=== PATIENT | female | born 1975 | race Caucasian/White ===

== ENCOUNTER → 2023-04-14 | Outpatient (CLI) | payer OTHER, MEDICAID ==
[2023-04-14 15:12] LABS: HEMATOCRIT 42.2 % (37.0-47.0); HEMOGLOBIN 13.7 g/dL (12.5-16.0); MEAN PLATELET VOLUME 8.9 fl (7.4-10.4); RED BLOOD COUNT 4.55 M/mm3 (4.10-5.30); RED CELL DISTRIBUTION WIDTH 12.2 % (11.5-14.5); WHITE BLOOD COUNT 5.6 K/mm3 (4.8-10.8)
[2023-04-14 15:18] LABS: ALBUMIN 4.2 g/dL (3.5-5.0)
[2023-04-14 15:20] LABS: CALCIUM 9.3 mg/dL (8.3-10.5)
[2023-04-14 15:21] LABS: TOTAL PROTEIN 6.8 g/dL (6.4-8.3)
[2023-04-14 15:23] LABS: TOTAL BILIRUBIN 0.4 mg/dL (0.2-1.2)
== END ==
LOC: LAB 14:51
PROVIDERS: Family Medicine
DX: M47.812 Spondylosis without myelopathy or radiculopathy, cervical region (principal); D50.0 Iron deficiency anemia secondary to blood loss (chronic); R03.0 Elevated blood-pressure reading, without diagnosis of hypertension; M40.50 Lordosis, unspecified, site unspecified

== ENCOUNTER → 2024-03-19 | Outpatient (CLI) | payer OTHER ==
[2024-03-19 14:40] LABS: CALCIUM 9.6 mg/dL (8.3-10.5)
== END ==
LOC: LAB 14:20
PROVIDERS: Family Medicine
DX: I10 Essential (primary) hypertension (principal); F11.10 Opioid abuse, uncomplicated